=== PATIENT | female | born 1985 | race Caucasian/White ===

== ENCOUNTER → 2017-08-29 | Outpatient (CLI) | payer OTHER ==
[2017-08-29 15:02] LABS: SYNOVIAL FLUID APPEARANCE BLOODY; SYNOVIAL FLUID COLOR RED
[2017-08-29 15:03] LABS: SYNOVIAL FLUID MONONUC RELAT 39.5 %; SYNOVIAL FLUID POLYNUC RELAT 60.5 %
== END | disposition home or self-care (01) ==
LOC: C.LAB 13:26
PROVIDERS: ATTEND Orthopaedic Surgery Sports Medicine
DX: M79.671 Pain in right foot (principal)